=== PATIENT | male | born 1985 | race Hispanic/Latino ===

== ENCOUNTER 2021-11-11 21:52 | Emergency (ER) | payer OTHER ==
--- NOTE | 2021-11-11 23:50 | EDPHYS ---
Physician Documentation [facility] Name: Jaime Wayne Age: 36 yrs Sex: Male : 1985 Arrival Date: 11/11/2021 Time: 21:53 Bed 10 Private MD: ED Physician Masoud Beal HPI: 11/11 22:15 This 36 yrs old Male presents to ER via EMS with complaints of Gas Exposure. cp 22:15 Type of Exposure: potential inhalation, a chemical, vinyl chloride and HCL. cp 22:15 Context: The problem was sustained at work. Onset: The symptoms/episode began/occurred cp just prior to arrival, today. Symptoms: burning of nose and throat. EMS reports patient was exposed briefly and received a "whiff" of vinyl chloride and HCL. Historical: - Allergies: 22:07 No Known Allergies; bb - Home Meds: 22:07 None [Active]; bb - PMHx: 22:07 None; bb - PSHx: 22:07 None; bb - Immunization history:: Client reports having NOT received the Covid vaccine. - Social history:: Smoking status: Patient denies any tobacco usage or history of. ROS: 22:20 Constitutional: Negative for body aches, chills, fever, poor PO intake. cp 22:20 Eyes: Negative for injury, pain, redness, and discharge. cp 22:20 ENT: Positive for nasal passage and throat burning, Negative for drainage from ear(s), ear pain, difficulty swallowing, difficulty handling secretions. 22:20 Cardiovascular: Negative for chest pain, palpitations. 22:20 Respiratory: Negative for cough, shortness of breath, wheezing. 22:20 Abdomen/GI: Negative for abdominal pain, nausea, vomiting, and diarrhea. 22:20 Skin: Negative for rash. 22:20 Neuro: Negative for altered mental status, loss of consciousness, weakness. 22:20 All other systems are negative. Exam: 22:25 Constitutional: The patient appears in no acute distress, alert, awake, comfortable, cp non-diaphoretic, non-toxic, well developed, well nourished. 22:25 Head/Face: Normocephalic, atraumatic. cp 22:25 Eyes: Periorbital structures: appear normal, Conjunctiva: normal, no exudate, no injection, Sclera: no appreciated abnormality, Lids and lashes: appear normal, bilaterally. 22:25 ENT: External ear(s): are unremarkable, Ear canal(s): are normal, clear, TM's: dullness, bilaterally, Nose: is normal, Mouth: Lips: moist, Oral mucosa: pink and intact, moist, Posterior pharynx: is normal, airway is patent, no erythema, no exudate. 22:25 Neck: ROM/movement: is normal, is supple, without pain, no range of motions limitations. 22:25 Chest/axilla: Inspection: normal, Palpation: is normal, no crepitus, no tenderness. 22:25 Cardiovascular: Rate: normal, Rhythm: regular. 22:25 Respiratory: the patient does not display signs of respiratory distress, Respirations: normal, no use of accessory muscles, no retractions, labored breathing, is not present, Breath sounds: are clear throughout, no decreased breath sounds, no stridor, no wheezing. 22:25 Abdomen/GI: Inspection: abdomen appears normal, Palpation: abdomen is soft and non-tender, in all quadrants. 22:25 Skin: no rash present. 22:25 Neuro: Orientation: to person, place \\T\\ time. Mentation: is normal, Motor: moves all fours, strength is normal, Sensation: is normal. Vital Signs: 22:03 BP 124 / 66; Pulse 88; Resp 18 S; Temp 98.2(O); Pulse Ox 96% on R/A; Weight 81.19 kg bb (R); Height 6 ft. 2 in. (187.96 cm) (R); Pain 0/10; 23:21 BP 114 / 57; Pulse 66; Resp 18; Temp 98.5; Pulse Ox 95% on R/A; al4 11/12 00:05 BP 116 / 58; Pulse 72; Resp 18; Pulse Ox 98% ; Pain 0/10; al4 11/11 22:03 Body Mass Index 22.98 (81.19 kg, 187.96 cm) bb MDM: 11/11 21:54 Patient medically screened. cp 23:48 Data reviewed: vital signs, nurses notes, radiologic studies, plain films. cp 23:48 Test interpretation: by ED physician or midlevel provider: plain radiologic studies. cp Counseling: I had a detailed discussion with the patient and/or guardian regarding: the historical points, exam findings, and any diagnostic results supporting the discharge/admit diagnosis, radiology results, to return to the emergency department if symptoms worsen or persist or if there are any questions or concerns that arise at home. Response to treatment: the patient's symptoms have resolved after treatment. ED course: VSS. Chest xray negative for infiltrates. Consult with Poison Control did not recommend labs. Recommended baseline chest xray and monitoring symptoms. Patient appears non-toxic and no signs of respiratory distress. Will discharge to home for continued monitoring. 11/11 22:09 Order name: XRAY Chest (1 view) cp Administered Medications: No medications were administered Disposition Summary: 11/11/21 23:49 Discharge Ordered Location: Home cp Problem: new cp Symptoms: have improved cp Condition: Stable cp Diagnosis - Contact with and (suspected) exposure to hazardous, chiefly nonmedicinal, chemicals cp Followup: cp - With: Private Physician - When: 1 - 2 days - Reason: Recheck today's complaints Discharge Instructions: - Discharge Summary Sheet cp - Chemical Inhalation Injury, Adult cp Forms: - Medication Reconciliation Form cp - Thank You Letter cp - Antibiotic Education cp - Prescription Opioid Use cp Addendum: 11/18/2021 07:29 Co-signature as Attending Physician, Masoud Beal MD I agree with the assessment and k dr plan of care. Signatures: Dispatcher [employer] Masoud Sharif MD MD kdr Ballard, Brenda, RN RN Matthew Roblero PA PA cp
--- NOTE | 2021-11-11 23:50 | ER ---
Nurse's Notes [facility] Name: Jaime Wayne Age: 36 yrs Sex: Male : 1985 Arrival Date: 11/11/2021 Time: 21:53 Bed 10 Private MD: Diagnosis: Contact with and (suspected) exposure to hazardous, chiefly nonmedicinal, chemicals Presentation: 11/11 22:03 Chief complaint: EMS states: pt was exposed to accidental gas release of vinyl chloride bb and HCL within approximately the last 60 minutes. Coronavirus screen: At this time, the client does not indicate any symptoms associated with coronavirus-19. Ebola Screen: No symptoms or risks identified at this time. Initial Sepsis Screen: Does the patient meet any 2 criteria? No. Patient's initial sepsis screen is negative. Does the patient have a suspected source of infection? No. Patient's initial sepsis screen is negative. Risk Assessment: Do you want to hurt yourself or someone else? Patient reports no desire to harm self or others. Onset of symptoms was November 11, 2021. 22:03 Method Of Arrival: EMS: [facility] bb 22:03 Acuity: JASEN 4 bb 22:08 Note Poison Control contacted recommendations are as follows: baseline chest Xray, bb symptomatic treatment. Triage Assessment: 23:55 General: Appears in no apparent distress. comfortable, Behavior is calm, cooperative. al4 Pain: Denies pain. Historical: - Allergies: 22:07 No Known Allergies; bb - Home Meds: 22:07 None [Active]; bb - PMHx: 22:07 None; bb - PSHx: 22:07 None; bb - Immunization history:: Client reports having NOT received the Covid vaccine. - Social history:: Smoking status: Patient denies any tobacco usage or history of. Screenin:44 Abuse screen: Denies threats or abuse. Nutritional screening: No deficits noted. al4 Tuberculosis screening: No symptoms or risk factors identified. Fall Risk No fall in past 12 months (0 pts). No IV (0 pts). Ambulatory Aid- None/Bed Rest/Nurse Assist (0 pts). Gait- Normal/Bed Rest/Wheelchair (0 pts) Mental Status- Oriented to own ability (0 pts). Total Burch Fall Scale indicates No Risk (0-24 pts). Assessment: 22:36 Reassessment: Patient is alert, oriented x 3, equal unlabored respirations, skin al4 warm/dry/pink. 22:38 Reassessment: patient ambulating to restroom. al4 23:31 Reassessment: Patient and/or family updated on plan of care and expected duration. Pain al4 level reassessed. 23:42 Reassessment: antenna installer Brian G [id number] used to explain the risks vs benefits of leaving al4 AMA. I explained to the patient that leaving AMA means that the hospital is not responsible for what happens to the patient after the patient is discharged. Patient demonstrated correct understanding of instructions given and wants to proceed to sign the AMA form. 23:43 Reassessment: Patient denies pain, n/v/d, sob. Patient states he is ready to leave and al4 feels "perfectly fine." Patient states he will follow up with occupational health and get seen by the physician that they provide. Vital Signs: 22:03 BP 124 / 66; Pulse 88; Resp 18 S; Temp 98.2(O); Pulse Ox 96% on R/A; Weight 81.19 kg bb (R); Height 6 ft. 2 in. (187.96 cm) (R); Pain 0/10; 23:21 BP 114 / 57; Pulse 66; Resp 18; Temp 98.5; Pulse Ox 95% on R/A; al4 11/12 00:05 BP 116 / 58; Pulse 72; Resp 18; Pulse Ox 98% ; Pain 0/10; al4 11/11 22:03 Body Mass Index 22.98 (81.19 kg, 187.96 cm) ED Course: 11/11 21:53 Patient arrived in ED. wm 21:54 Matthew Rose PA is PHCP. cp 21:54 Masoud Beal MD is Attending Physician. cp 22:07 Triage completed. bb 22:07 Arm band placed on Patient placed in an exam room, on a stretcher, on pulse oximetry. bb 22:10 El Chaves is Primary Nurse. al4 22:51 XRAY Chest (1 view) In Process Unspecified. EDMS 23:44 Patient has correct armband on for positive identification. al4 23:44 No provider procedures requiring assistance completed. Patient did not have IV access al4 during this emergency room visit. Administered Medications: No medications were administered Outcome: 23:49 Discharge ordered by MD. card 11/12 00:04 Discharged to home ambulatory. al4 Condition: stable Discharge instructions given to patient, Instructed on discharge instructions, follow up and referral plans. Demonstrated understanding of instructions, follow-up care. 00:05 Patient left the ED. al4 Signatures: Dispatcher [employer] Tonie Be RN RN Matthew Roblero PA PA cp Marsh, Wendy wm Ledbetter, Alexis al4
[2021-11-12 02:15] VITALS: TEMP 98.5
[2021-11-12 02:16] VITALS: BP 116/58; O2SAT 98
--- NOTE | 2021-11-12 11:51 | RAD REPORT ---
EXAM DESCRIPTION: RAD - Chest Single View - 11/11/2021 10:51 pm CLINICAL HISTORY: chemical exposure COMPARISON: None TECHNIQUE: AP portable chest image was obtained 11/11/2021 10:51 pm . FINDINGS: Lungs are clear. Heart and vasculature are normal. No measurable pleural effusion and no p neumothorax. No acute bony abnormality seen. No acute aortic findings suspected. Final report was delayed due to technical malfunction. Imaging was reviewed at the time of the study. IMPRESSION: No acute cardiopulmonary process.
== END 2021-11-12 00:05 | disposition home or self-care (01) ==
LOC: ER 21:52
DX: R07.0 Pain in throat (principal); Z77.098 Contact with and (suspected) exposure to other hazardous, chiefly nonmedicinal, chemicals
CPT/HCPCS: 71045; 99283